=== PATIENT | male | born 1995 | race African-American/Black ===

== ENCOUNTER 2020-10-09 20:54 | Emergency (ER) | payer OTHER ==
[~2020-10-09] VITALS: Ht 170.2 cm; Wt 68.0 kg
[2020-10-09] MEDS ORDERED: NORCO5 PO (21:47)
[2020-10-09] MEDS ORDERED: IBUPROFEN 800800 M1 PO (21:47)
[2020-10-09] MEDS ORDERED: BACTRIM DS TAB1 EACH PO (21:47)
[2020-10-09] MEDS ORDERED: CEPHALEXIN500 MG PO (21:47)
[2020-10-09 21:57] VITALS: BP 129/83
== END 2020-10-09 21:57 | disposition home or self-care (01) ==
LOC: M.ERS 20:54
DX: H60.02 Abscess of left external ear (principal)